=== PATIENT | female | born 1940 | race Caucasian/White ===

== ENCOUNTER → 2018-12-01 | Outpatient (REF) | payer MEDICARE ==
[~2018-12-01] MED LIST: ASPIRIN CHEWABL81 MG PO; CIPROFLOXACN500 MG PO; DIFLUCAN150 MG OR; ESTRACE1 MG OR; GLYCOPYRROL2 MG OR; HYZAAR1 TA2 PO; METO50TA52 PO; OMEPRAZOLE20 MG PO; TYLENOL ARTH650 M1 OR; ULTRAM50 MG PO; VYTORIN 10/201 TAB PO
[2018-12-01 09:44] LABS: ANION GAP 14 (6-22 (CALC)); BUN 15 mg/dL (8-23); BUN/CREATININE RATIO 15 (12-20 (CALC)); CARBON DIOXIDE 30 mmol/l (22-30); CHLORIDE 97 mmol/l (95-108); GFR 54 ML/MIN (>=60 (CALC)); GFR FOR AFR.AMER. > 60 ML/MIN (>=60 (CALC)); SODIUM 137 mmol/l (137-146)
== END | disposition home or self-care (01) ==
LOC: CT 09:05
PROVIDERS: ATTEND Surgery Vascular Surgery
DX: I65.23 Occlusion and stenosis of bilateral carotid arteries (principal)
CPT/HCPCS: Q9967

== ENCOUNTER → 2018-12-14 | Outpatient (REF) | payer MEDICARE | END | disposition home or self-care (01) | LOC: STRESS 13:40 → NUCMED 14:00 | PROVIDERS: ATTEND Internal Medicine | DX: I20.8 Other forms of angina pectoris (principal); I25.9 Chronic ischemic heart disease, unspecified | CPT/HCPCS: A9502; J2785 ==

== ENCOUNTER 2019-02-08 08:13 | Day surgery (SDC) | payer MEDICARE ==
[~2019-02-08 08:13] MED LIST changes: +ALIGN4 MG PO; +BOSWELLIA PO; +CALTRAT1 PO; +DULOXETINE HCL30 MG PO; +METAMUCIL28 % PO; +MULTIVITAMI1 PO; +PREVAGEN10 MG PO; +SIMVASTATIN40 MG PO; +[UNRECOGNIZED DRUG - OTHER] PO; +[UNRECOGNIZED DRUG - OTHER] PO
[2019-02-08 10:27] VITALS: BP 136/77
== END 2019-02-08 10:07 | disposition home or self-care (01) ==
LOC: ENDO 08:13 → ORM 10:45 → ENDO 10:45
PROVIDERS: ATTEND Surgery
PROC: 0DJ08ZZ Inspection of Upper Intestinal Tract, Via Natural or Artificial Opening Endoscopic (ICD-10-PCS; principal; 2019-02-08)
DX: K44.9 Diaphragmatic hernia without obstruction or gangrene (principal); K21.9 Gastro-esophageal reflux disease without esophagitis; I12.9 Hypertensive chronic kidney disease with stage 1 through stage 4 chronic kidney disease, or unspecified chronic kidney disease; N18.9 Chronic kidney disease, unspecified